=== PATIENT | male | born 1955 | race African-American/Black ===

== ENCOUNTER 2018-05-18 15:40 | Emergency (ER) | payer OTHER ==
[~2018-05-18] VITALS: Ht 172.7 cm; Wt 100.0 kg
[2018-05-18] MEDS ORDERED: SODIUM CHLORIDE 0.9% 1,000 ML IV ONE (15:42)
[2018-05-18] MEDS ORDERED: DiphenhydrAMINE HCL 50 MG/ML VIAL IVP ONE (15:45)
[2018-05-18] MEDS ORDERED: FAMOTIDINE 10 MG/ML 2 ML VIAL IVP ONE (15:45)
[2018-05-18] MEDS ORDERED: EPINEPHrine 1:1,000 [1 MG/ML] AMP IM ONE (15:45)
[2018-05-18] MEDS ORDERED: MethylPREDNISolone SOD SUCC 125 MG/2 ML VIAL IVP ONE (15:45)
[2018-05-18] MEDS ORDERED: LISI-662 PO (15:57)
[2018-05-18] MEDS ORDERED: AMLO-512 PO (15:57)
[2018-05-18 19:59] VITALS: BP 135/79
== END 2018-05-18 20:00 | disposition home or self-care (01) ==
LOC: EMS 15:41
DX: T78.2XXA Anaphylactic shock, unspecified, initial encounter (principal); R22.0 Localized swelling, mass and lump, head; H57.8 Other specified disorders of eye and adnexa; I10 Essential (primary) hypertension; Z79.899 Other long term (current) drug therapy
CPT/HCPCS: 71045; 93005; 96372; 96374; 96375; 99291; J0171; J1200; J2930; J3490

== ENCOUNTER 2021-01-11 16:51 | Emergency (ER) | payer OTHER ==
[~2021-01-11] VITALS: Ht 172.7 cm; Wt 98.6 kg
[~2021-01-11 16:51] MED LIST: AMLO-258 PO; LISI-894 PO
[2021-01-11] MEDS ORDERED: HYDR25TA2 PO (16:59)
[2021-01-11] MEDS ORDERED: IBUPROFEN 600 MG TABLET PO ONE (18:30)
[2021-01-11 18:56] VITALS: BP 142/85
== END 2021-01-11 19:03 | disposition home or self-care (01) ==
LOC: EMS 16:52
DX: R51.9 Headache, unspecified (principal)
CPT/HCPCS: 70450; 99284

== ENCOUNTER 2025-02-20 07:06 | Emergency (ER) | payer MEDICARE, OTHER ==
[~2025-02-20] VITALS: Ht 172.7 cm; Wt 105.4 kg
[~2025-02-20 07:06] MED LIST changes: +HYDR25TA2 PO
[2025-02-20 07:30] VITALS: TEMP 97.4
[2025-02-20] MEDS: INDOMETHACIN 50 MG CAPSULE PO ONE (11:12)
[2025-02-20] MEDS: COLCHICINE 0.6 MG TABLET PO ONE (11:12)
[2025-02-20] MEDS: OxyCODONE HCL/ACETAMINOPHEN 5-325 MG TABLET PO ONE (11:54)
[2025-02-20] MEDS ORDERED: COLC-3 PO ×2 (11:57)
[2025-02-20] MEDS ORDERED: INDO50CA97 PO (11:57)
[2025-02-20] MEDS ORDERED: PERCT PO (11:57)
[2025-02-20 12:00] VITALS: BP 136/66; PULSE 67; RESP 16; O2SAT 97
== END 2025-02-20 12:26 | disposition home or self-care (01) ==
LOC: EMS 07:14
DX: M10.072 Idiopathic gout, left ankle and foot (principal); J45.909 Unspecified asthma, uncomplicated; I10 Essential (primary) hypertension; Z79.899 Other long term (current) drug therapy
CPT/HCPCS: 99284